=== PATIENT | male | born 1940 | race Caucasian/White ===

== ENCOUNTER 2017-01-20 14:56 | Emergency (ER) | payer MEDICARE, OTHER | END 2017-01-20 16:50 | disposition home or self-care (01) | LOC: ER 14:56 | DX: S33.5XXA Sprain of ligaments of lumbar spine, initial encounter (principal); W06.XXXA Fall from bed, initial encounter; Y92.003 Bedroom of unspecified non-institutional (private) residence as the place of occurrence of the external cause; Z79.899 Other long term (current) drug therapy; Z79.891 Long term (current) use of opiate analgesic | CPT/HCPCS: 72100; 72131; 99283-25; 99284 ==